=== PATIENT | female | born 1950 | race Caucasian/White ===

== ENCOUNTER 2020-07-14 15:30 | Inpatient (IN) ==
--- NOTE | 2020-07-14 16:07 | ERNOTE ---
Neuro HPI ER Record Date of Service: 07/14/20 Presenting Symptoms: weakness, numbness, impaired speech, difficulty walking Time Seen by Provider: 07/14/20 15:59 Source: patient, family Exam Limitations: no limitations Immunizations: IMMUNIZATION HX Immunizations Up to Date Yes Allergies/Adverse Reactions: Allergies Allergy/AdvReac Type Severity Reaction Status Date / Time Penicillins Allergy Unknown Verified 07/14/20 16:22 Home Medications: HOME MEDICATIONS Aspirin [Aspirin EC] 325 mg PO DAILY 07/14/20 [Last Taken Unknown] Esomeprazole Magnesium [Nexium] 20 mg PO DAILY 07/14/20 [Last Taken Unknown] - History of Present Illness Narrative: 69 yr old left hand dominant female with history of CVA three years ago resulting in weakness of the left hand hand and leg. She had improved and was able to walk independently. On Wednesday morning she noticed increased weakness to her left leg causing it to drag. Also reported weakness in her left hand. Reports decreased sensation in the left leg. The daughter saw her today and noted that she was walking with her walker again and brought her to the ER. Also reports vomiting the past few nights. States she had difficulty swallowing. Denies any nausea. Reports dull right sided headache in the pos terior region. Denies any dizziness. Daughter feels the patient's speech is slightly slurred and slower. She does not have a primary care provider. She moved here from [place] two years ago and has not had any health care here. Date (Duration): 07/14/20 Time (Timing): 15:59 Last Date Known Well: 07/11/20 Last Time Known Well: 12:00 Onset: gradual onset Severity: moderate Context: other - None - Character of Deficits New weakness: Present: LUE, LLE Altered sensation: Present: LLE Additional Deficits: Present: impaired speech - not as fluent, difficulty swallowing, decrease ability to stand, decrease ability to walk, off balance - unsteady Baseline Cognition: Present: alert, oriented x 4 Baseline Gait: Present: uses a cane/walker Associated Symptoms: Reports: headache Prior Treament: Reports: similar symptoms before Review of Systems - Review of Systems Constitutional: Present: weakness EYE: Present: no symptoms reported ENT: Present: no symptoms reported Respiratory: Absent: shortness of breath Cardiology: Absent: chest pain, palpitations Gastrointestinal/Abdominal: Absent: nausea, vomiting Genitourinary: Present: no symptoms reported Musculoskeletal: Present: no symptoms reported Skin: Present: no symptoms reported Neurological: Present: headache, weakness, numbness Endocrine: Present: no symptoms reported Hematologic/Lymphatic: Present: no symptoms reported Psych: Present: no symptoms reported All Other Systems: All systems neg except as marked Medical History (Last Reviewed 07/14/20 @ 16:09 by CRISTO Barrios) History of CVA with residual deficit L leg weakness Surgical History: Surgical History (Last Updated 07/14/20 @ 16:20 by Ale De Oliveira RN) History of tonsillectomy and adenoidectomy Family History: Family History (Last Updated 07/14/20 @ 16:41 by Ale De Oliveira RN) Mother Hypertension CHF (congestive heart failure) COPD (chronic obstructive pulmonary disease) Father Myocardial infarction Social History: (Last Updated 07/14/20 @ 16:22 by Ale De Oliveira RN) Tobacco: Smoking Status: Former smoker Alcohol: alcohol intake: current Alcohol type: beer alcohol intake frequency: 0-2 drinks per day Substance Use: substance use type: does not use Physical Exam - Physical Exam General Appearance: Present: wd/wn, alert, no apparent distress Head Exam: Present: normal inspection, no evidence of injury Eye Exam: Normal inspection: bilateral, PERRL: bilateral, EOMI: bilateral Ears, Nose, Throat: Present: normal ENT inspection, normal pharynx Neck: Present: normal inspection Respiratory: Present: no respiratory distress, normal breath sounds, no accessory muscle use, chest nontender, lungs clear Cardiovascular/Chest: Present: regular rate, rhythm, no murmur, normal peripheral pulses Gastrointestinal/Abdominal: Present: normal bowel sounds, nontender, nondistended, soft Back Exam: Present: normal inspection, normal range of motion Extremity Exam: Present: non-tender, normal range of motion, no edema, other - Left sided weakness Left hand broadcast director operations 4/5, right hand broadcast director operations 5/5, Left quadricep 3/5, right quadricep 5/5 Difficulty in coordination in walking, drags left leg Neurological Exam: Present: alert, oriented, normal mood/affect, air traffic controller center II-XII nml as tested, motor weakness - Left hand and left leg, other - Decreased sensation in left leg, No drift. Mild ataxia left leg Gait is very unsteady. Absent: facial droop, disoriented to person, disoriented to time, disoriented to place, disoriented to situation Skin Exam: Present: normal color, warm/dry Kye Coma Scale - Assess Eye Opening: Spontaneous Motor: Obeys Commands Verbal: Oriented - Total Coma Scale Total: 15 Initial Stroke Assessment - Date/Time of assessment Stroke Scale Date: 07/14/20 Stroke Scale Time: 16:00 - NIH Stroke Scale Level of Consciousness: Alert LOC Questions (Year and Age): Answers both correctly LOC Commands (open/close eyes/fist): Performs both correctly Lateral Gaze Paresis: None Visual Field Loss: No visual loss Facial Palsy: Normal movement Right Arm Motor (10 sec hold): No drift Left Arm Motor (10 sec hold): No drift Right Leg Motor (5 sec hold): No drift Left Leg Motor (5 sec hold): No drift Limb Ataxia (finger/nose heel/callejas): Present in 1 limb Sensory Loss (pinprick arms/legs/face): Mild, aware yet dulled Language Aphasia (description/naming/reading): No aphasia; normal Dysarthria (speech clarity): Normal articulation Neglect Inattention (visual/tactile/auditory/spatial/person): No neglect Initial Stroke Scale Score:: 2 Stroke Inclusion/Exclusion Cri - Inclusion Questions: Yes Onset of symptoms <3 1/2 hours of admission to ETC: No Secondary Stroke Assessment - Date/Time of assessment Stroke Scale Time: 17:26 - NIH Stroke Scale Level of Consciousness: Alert LOC Questions (Year and Age): Answers both correctly LOC Commands (open/close eyes/fist): Performs both correctly Lateral Gaze Paresis: None Visual Field Loss: No visual loss Facial Palsy: Normal movement Right Arm Motor (10 sec hold): No drift Left Arm Motor (10 sec hold): No drift Right Leg Motor (5 sec hold): No drift Left Leg Motor (5 sec hold): No drift Limb Ataxia (finger/nose heel/callejas): Present in 1 limb If present, ataxia in:: Left leg Sensory Loss (pinprick arms/legs/face): Mild, aware yet dulled Language Aphasia (description/naming/reading): No aphasia; normal Dysarthria (speech clarity): Normal articulation Neglect Inattention (visual/tactile/auditory/spatial/person): No neglect Secondary Stroke Scale Total:: 2 - Results of Tests Evidence of acute intracranial bleed: No Evidence of acute ischemic stroke: Yes CT result is negative: Yes Platelets >100,000/ Hemogram normal: Yes PT<15 or INR <1.7: Yes PTT normal: Yes Progress - Results and Orders Patient's Lab Results:: I have reviewed the patient's lab results. Results and Orders: Laboratory Tests 07/14/20 16:17 WBC 8.1 RBC 4.63 Hgb 14.0 Hct 42.5 Plt Count 181 Laboratory Tests 07/14/20 16:17 PT 11.2 H INR (Anticoag Therapy) 1.08 PTT ([place]) 24.7 Laboratory Tests 07/14/20 07/14/20 16:17 16:17 ESR 24 H Sodium 140 Potassium 3.5 Chloride 104 Carbon Dioxide 25.8 Anion Gap 13.7 BUN 12 Creatinine 1.13 Est GFR (Non-Af Amer) 51 L BUN/Creatinine Ratio 10.6 Random Glucose 98 Calcium 9.1 Total Bilirubin 0.5 AST 79 H ALT 86 H Alkaline Phosphatase 79 Total Protein 7.4 Albumin 3.5 - Vital Signs Patient's Vital Signs:: I have reviewed the patient's vital signs. Vital Signs: Vital Signs 07/14/20 15:35 Temperature 36.9 C Pulse Rate 80 Respiratory Rate 18 Blood Pressure 92/39 O2 Sat by Pulse Oximetry 95 - EKG EKG #1 EKG: other - Sinus bradycardia rate 58, no acute changes - X-Ray X-Ray #1 X-Ray: chest Interpretation: Discd w/ radiologist - No acute pathology - CT/Ultrasound CT/Ultrasound Narrative: CT Head: Findings: Exam shows symmetric prominence of the ventricular system compatible with moderate atrophy. There is moderate to severe white matter low densities compatible with white matter microvascular ischemic disease. There are no focal abnormal hypodensities to suggest vascular territory infarct. Follow-up with head MRI as clinically indicated. There is no positive mass effect or midline shift. There is no evidence for intracranial hemorrhage. Visualized paranasal sinuses and mastoid air cells appear adequately aerated. IMPRESSION: MODERATE ATROPHY WITH MODERATE TO SEVERE WHITE MATTER MICROVASCULAR ISCHEMIC DISEASE. NO ACUTE INTRACRANIAL PATHOLOGY OTHERWISE IDENTIFIED. FOLLOW- UP CLINICALLY INDICATED. Electronically signed by Nikita Patrick M.D.. - Progress/Reassessment Chief Complaint: CerebroVascular Accident Progress Note-Subjective: 07/14/20 16:26 Blood sugar on arrival at bedside was 91 07/14/20 17:57 Test results, etiology and treatment plan discussed with daughter and patient. Symptoms persist. Patient needs admission for further work up of echocardiogram, carotid ultrasound and MRI. She does not meet criteria for TPA. She has failed Aspirin therapy, so most likely will need different anticoagulation. Will need acute rehabilitation as well. We attempted to ambulate patient a short distance to a wheelchair. She required assistance and was very unstable. Patient would be a fall risk to go home. I have a call out to Dr. Mann for admission. 07/14/20 18:[address] Mann. He graciously agreed to accept her for admission. Patient needs acute rehabilitation to have the best chance to regain her mobility, independence and prevent further complications. Her blood pressure needs to be monitored. She needs medication adjustments for her hypertension and her anti - platelet therapy. Will also need echocardiogram, carotid ultrasound and MRI of the head. 07/14/20 18:55 Plan - Plan Plan: Admit to acute floor Departure Clinical Impression: CVA (cerebral vascular accident) Qualifiers: CVA mechanism: unspecified Qualified Code(s): I63.9 - Cerebral infarction, unspecified Hypertension Qualifiers: Hypertension type: unspecified Qualified Code(s): I10 - Essential (primary) hypertension - Departure Disposition: Still a patient Condition: Stable
[2020-07-14] MEDS ORDERED: LABETALOL HCL 5 MG/ML VIAL IV ONE ×2 (16:19→16:49)
[2020-07-14 16:34] LABS: Hematocrit 42.5 % (37.0-47.0); Mean Cell Volume 91.8 fl (78-100); Mean Corpuscular Hemoglobin 30.2 pg (27-31); Mean Corpuscular Hgb Conc 32.9 g/dl (32-36); Neutrophil # 3.5 K/mm3 (1.3-6.0); Neutrophil % 42.9 % (42-75.0); Platelet Count 181 K/mm3 (150-450); Red Blood Count 4.63 M/mm3 (4.2-5.4); Red Cell Distribution Width 12.8 % (11.5-14.0); White Blood Count 8.1 K/mm3 (4.0-10.5)
[2020-07-14 16:47] LABS: Prothrombin Time (Patient) 11.2 Seconds (9.1-10.7)
[2020-07-14 16:50] LABS: INR 1.08 INR (0.92-1.08); Partial Thrombolplastin Time 24.7 Seconds (24-32)
[2020-07-14 17:02] LABS: Albumin * 3.5 gm/dl (3.4-5.0); Anion Gap 13.7 mmol/L (6.8-13.8); BUN/Creatinine Ratio 10.6 (9.0-21.6); Bilirubin, Total 0.5 mg/dL (0.0-1.1); Ca. Corrected For Albumin 9.2 mg/dL (8.4-10.2); Calcium * 9.1 mg/dL (7.9-10.9); Carbon Dioxide 25.8 mmol/L (24-32.6); Potassium 3.5 mmol/L (3.4-4.6); Total Protein 7.4 gm/dL (6.2-8.2)
--- NOTE | 2020-07-14 21:11 | HP ---
Chief Complaint - Chief Complaint Date of Service: 07/14/20 Time of Service: 21:11 Chief Complaint: Left leg weakness, difficulty with some speech, cognitively slow History of Present Illness: 69-year-old female with history of previous CVA roughly 2 and half years ago and GERD presented to the hospital after 3 days of progressively worsening left lower extremity weakness with some slurred speech and difficulty finding the appropriate words. Patient states that her left lower extremity weakness has fluctuated over the last couple of weeks but significantly declined since that surgery. She is unsure as why she did not come in earlier. She is well inside the window of any kind of intervention. Patient does take a full-strength aspirin but is not on a statin. Patient with previous CVA that resulted in left-sided deficit but states that they had improved some to where she could function other than drive but now she is really struggling with ambulation, speech, balance, and cognition. Head CT showed moderate atrophy with moderate to severe white matter microvascular ischemic disease. No acute intracranial pathology otherwise identified. Patient states previous work-ups for her other CVA was nonconclusive. She does not have those records with her at this time. Patient has not seen a physician close to 2 years since moving to the area from [place]. Currently she denies headache, vision changes. She endorses left lower extremity weakness. Denies sensory changes. Some nystagmus horizontally on eye exam. She does appear to be having issues with finding the right words to use and according to her family was in the room she is much slower with her speech with some slurring. Facial symmetry within normal limits. Cranial nerves II through XII intact. Patient admitted under observation, will need PT/OT/ST for evaluation. Likely will need outpatient work-up Lab work in the ER was fairly unremarkable. Medical History (Last Reviewed 07/14/20 @ 19:53 by Aleshia Shane RN) Endometriosis H/O angiography cerebral and reports was normal History of CVA with residual deficit L leg weakness Hypertension Osteopenia Surgical History: Surgical History (Last Reviewed 07/14/20 @ 19:53 by Aleshia Shane RN) History of tonsillectomy and adenoidectomy Family History: Family History (Last Reviewed 07/14/20 @ 19:53 by Aleshia Shane RN) Mother Hypertension CHF (congestive heart failure) COPD (chronic obstructive pulmonary disease) Father Myocardial infarction Social History: (Last Reviewed 07/14/20 @ 19:53 by Aleshia Shane RN) Tobacco: Smoking Status: Former smoker Alcohol: alcohol intake: current Alcohol type: beer alcohol intake frequency: 0-2 drinks per day Substance Use: substance use type: does not use Review Of Systems (GEN) - Review of Systems Generalized/Overall Review: Present: Weakness. Absent: Chills, Fever EENTM: Present: No Symptoms Reported Respiratory: Present: No Symptoms Reported Cardiac: Present: No Symptoms Reported Abdominal: Present: No Symptoms Reported Genitourinary: Present: No Symptoms Reported Musculoskeletal: Present: No Symptoms Reported Neurological: Present: Weakness, Pre-existing Deficit, Other - slurred speech. Absent: Numbness Immunizations: IMMUNIZATION HX Immunizations Up to Date Yes Allergies/Adverse Reactions: Allergies Allergy/AdvReac Type Severity Reaction Status Date / Time Penicillins Allergy Unknown Verified 07/14/20 16:22 Home Medications: HOME MEDICATIONS Aspirin [Aspirin EC] 325 mg PO DAILY 07/14/20 [Last Taken Unknown] Esomeprazole Magnesium [Nexium] 20 mg PO DAILY 07/14/20 [Last Taken Unknown] Exam - Exam Vital Signs: Vital Signs - Last Taken Temp 36.2 C 07/14/20 19:40 Pulse 68 07/14/20 19:40 Resp 16 07/14/20 19:40 BP 162/92 H 07/14/20 19:40 Pulse Ox 94 07/14/20 19:40 Constitutional: Present: Alert, Oriented x3, Cooperative, Elderly ENT Exam: Present: hearing grossly normal Eye Exam: bilateral eye: normal inspection, PERRL, EOMI Neck: Present: non-tender, supple, normal inspection Respiratory: Present: lungs clear, normal breath sounds Cardiovascular/Chest: Present: regular rate, rhythm, no murmur Peripheral Pulses: dorsalis-pedis (R): 2+, dorsalis-pedis (L): 2+ Abdomen: Present: soft, nontender, nondistended Skin Exam: Present: normal color, warm/dry Neurologic: Present: roll up machine operator II-XII nml as tested, motor weakness - LLE 4/5, left heel boom operator strength 4+/5 RLE and RUE WNL, other - some dysphagia and dysarthria. Absent: sensory deficit Appearance: Present: appropriate appearance, appropriate insight Eye contact: Present: cooperative, good eye contact Thoughts: Present: normal thought pattern, normal mood /affect Diagnostic Studies: Abnormal Lab Results 07/14/20 07/14/20 07/14/20 Range/Units 16:17 16:17 16:17 Monocytes % 9.7 H (0.0-9) % Basophils % 1.1 H (0.0-1.0) % Lymphocytes # 3.51 H (1.5-3.5) k/mm3 ESR 24 H (0-15) mm/hr PT 11.2 H (9.1-10.7) Seconds Est GFR (Non-Af Amer) (60-130) mL/min AST (0-48) U/L ALT (19-67) U/L 07/14/20 Range/Units 16:17 Monocytes % (0.0-9) % Basophils % (0.0-1.0) % Lymphocytes # (1.5-3.5) k/mm3 ESR (0-15) mm/hr PT (9.1-10.7) Seconds Est GFR (Non-Af Amer) 51 L (60-130) mL/min AST 79 H (0-48) U/L ALT 86 H (19-67) U/L Laboratory Results WBC 8.1 K/mm3 (4.0-10.5) 07/14/20 16:17 RBC 4.63 M/mm3 (4.2-5.4) 07/14/20 16:17 Hgb 14.0 gm/dL (12.5-16.0) 07/14/20 16:17 Hct 42.5 % (37.0-47.0) 07/14/20 16:17 MCV 91.8 fl (78-100) 07/14/20 16:17 MCH 30.2 pg (27-31) 07/14/20 16:17 MCHC 32.9 g/dl (32-36) 07/14/20 16:17 RDW 12.8 % (11.5-14.0) 07/14/20 16:17 Plt Count 181 K/mm3 (150-450) 07/14/20 16:17 MPV 11.0 fl (8-12.5) 07/14/20 16:17 Immature Gran % (Auto) 0.10 % (0.001-0.429) 07/14/20 16:17 Immature Gran # (Auto) 0.01 K/mm3 (0.000-0.0310) 07/14/20 16:17 Neutrophils % 42.9 % (42-75.0) 07/14/20 16:17 Lymphocytes % 43.6 % (20-51) 07/14/20 16:17 Monocytes % 9.7 % (0.0-9) H 07/14/20 16:17 Eosinophils % 2.6 % (0.0-3.0) 07/14/20 16:17 Basophils % 1.1 % (0.0-1.0) H 07/14/20 16:17 Nucleated RBC % 0.0 k/mm3 (0-1) 07/14/20 16:17 Neutrophils # 3.5 K/mm3 (1.3-6.0) 07/14/20 16:17 Lymphocytes # 3.51 k/mm3 (1.5-3.5) H 07/14/20 16:17 Monocytes # 0.8 k/mm3 (0.0-1.0) 07/14/20 16:17 Eosinophils # 0.2 k/mm3 (0.0-0.7) 07/14/20 16:17 Absolute Basophils 0.1 k/mm3 (0.0-0.1) 07/14/20 16:17 ESR 24 mm/hr (0-15) H 07/14/20 16:17 PT 11.2 Seconds (9.1-10.7) H 07/14/20 16:17 INR (Anticoag Therapy) 1.08 INR (0.92-1.08) 07/14/20 16:17 PTT ([place]) 24.7 Seconds (24-32) 07/14/20 16:17 Sodium 140 mmol/L (132-142) 07/14/20 16:17 Plasma Sodium 140 mmol/L (130-142) 07/14/20 16:17 Potassium 3.5 mmol/L (3.4-4.6) 07/14/20 16:17 Chloride 104 mmol/L (97-106) 07/14/20 16:17 Carbon Dioxide 25.8 mmol/L (24-32.6) 07/14/20 16:17 Anion Gap 13.7 mmol/L (6.8-13.8) 07/14/20 16:17 BUN 12 mg/dL (3-23) 07/14/20 16:17 Creatinine 1.13 mg/dL (0.4-1.4) 07/14/20 16:17 Est GFR (Non-Af Amer) 51 mL/min (60-130) L 07/14/20 16:17 BUN/Creatinine Ratio 10.6 (9.0-21.6) 07/14/20 16:17 Random Glucose 98 mg/dL (70-110) 07/14/20 16:17 Calcium 9.1 mg/dL (7.9-10.9) 07/14/20 16:17 Calcium Adj for Albumin 9.2 mg/dL (8.4-10.2) 07/14/20 16:17 Total Bilirubin 0.5 mg/dL (0.0-1.1) 07/14/20 16:17 AST 79 U/L (0-48) H 07/14/20 16:17 ALT 86 U/L (19-67) H 07/14/20 16:17 Alkaline Phosphatase 79 U/L (50-170) 07/14/20 16:17 Total Protein 7.4 gm/dL (6.2-8.2) 07/14/20 16:17 Albumin 3.5 gm/dl (3.4-5.0) 07/14/20 16:17 SARS-CoV-2 (PCR) Not detected (NotDetected) 07/14/20 17:48 Assessment/Plan - Narrative Narrative: Patient admitted under inpatient for CVA. Patient currently will outside the window for any invasive procedures for treatment. Patient has history of CVA affecting left side roughly 2 and half years ago which mostly resolved but she still did have some left lower extremity deficit prior to this recurrence. Patient has had work-ups in the past which he states were negative, "most doctors think I am weird, hard to diagnose ". Unable to get some of her records as they were lost she does have records and [place] that we could obtain. Family has in the opening then. Patient is not on a statin medicine, states she had difficulty getting it due to insurance purposes. Patient's blood pressure fairly well controlled at this time and will treat to bring back into normal range as she is 3 days after onset of this issue. Patient likely with repeat CVA affecting her left side, her speech, and her mildly slowed cognition (per family considered). Will order PT, speech therapy, and occupational therapy for evaluation. Pending the recommendations she may be able to get MRI and carotid studies while here in the hospital. Due to patient's deficit though she likely will need to go to skilled inpatient nursing facility which I think would be appropriate for her. We will start her on statin medicine. Continue aspirin full-strength. Restarted her omeprazole which she takes for GERD. Will monitor blood pressure. Bedside swallow ordered with nurses to evaluate whether she can tolerate any p.o. intake. If he passes instrumented liquids until she gets formal recommendations from speech therapy. Overall the patient feels well, denies headache. She is pleasant to talk to. We will work her up for stroke in the morning, follow-up with her after her therapy evaluations, and likely start referral placements. If she does meet requirements for inpatient therapy then will order MRI and carotid studies. Nurse will call questions or concerns. - Assessment/Plan (1) CVA (cerebral vascular accident) Problem: Acute Qualifiers: CVA mechanism: unspecified Qualified Code(s): I63.9 - Cerebral infarction, unspecified (2) Hypertension Problem: Acute Qualifiers: Hypertension type: unspecified Qualified Code(s): I10 - Essential (primary) hypertension
[2020-07-14] MEDS: ROSUVASTATIN CALCIUM 10 MG TABLET PO SCH (21:54)
[2020-07-14] MEDS: ENOXAPARIN SODIUM 40 MG/0.4 ML SYRG SC SCH (21:54)
[2020-07-15] MEDS: PANTOPRAZOLE SODIUM 20 MG TABLET.DR PO SCH (08:35)
[2020-07-15] MEDS: ASPIRIN 325 MG TABLET.DR PO SCH (08:35)
[2020-07-15] MEDS: LISINOPRIL 10 MG TABLET PO SCH (11:46)
--- NOTE | 2020-07-15 12:07 | PN ---
Subjective - Date and Time Seen Date: 07/15/20 Time: 12:07 Subjective Narrative: Patient currently undergoing carrotid study. MRI obtained: LATE ACUTE EARLY SUBACUTE ISCHEMIC INFARCT IN THE RIGHT SIDE OF THE MID TO LOWER CONCHIS. NO HEMORRHAGE. NO MASS EFFECT OR MIDLINE SHIFT. CONSIDERABLE BILATERAL WHITE MATTER SIGNAL ABNORMALITIES AND CEREBRAL VOLUME LOSS INDICATING CHRONIC MICROVASCULAR ISCHEMIA. Carrotids unremarkable. She feels well, still has same neurological symptoms. Objective - Review of Systems Generalized/Overall Review: Reports: Weakness. Denies: Chills, Fever EENTM: Reports: No Symptoms Reported Respiratory: Reports: No Symptoms Reported Cardiac: Reports: No Symptoms Reported Abdominal: Reports: No Symptoms Reported Neurological: Reports: Weakness, Pre-existing Deficit. Denies: Numbness - Vitals Vitals: Last Vital Signs Temp 38.0 C 07/15/20 11:36 Pulse 83 07/15/20 11:46 Resp 16 07/15/20 11:36 BP 163/73 H 07/15/20 11:46 Pulse Ox 94 07/15/20 11:36 - Abnormal Lab Findings Abnormal Lab Findings: Abnormal Lab Results 07/14/20 07/14/20 07/14/20 Range/Units 16:17 16:17 16:17 Monocytes % 9.7 H (0.0-9) % Basophils % 1.1 H (0.0-1.0) % Lymphocytes # 3.51 H (1.5-3.5) k/mm3 ESR 24 H (0-15) mm/hr PT 11.2 H (9.1-10.7) Seconds Est GFR (Non-Af Amer) (60-130) mL/min AST (0-48) U/L ALT (19-67) U/L 07/14/20 Range/Units 16:17 Monocytes % (0.0-9) % Basophils % (0.0-1.0) % Lymphocytes # (1.5-3.5) k/mm3 ESR (0-15) mm/hr PT (9.1-10.7) Seconds Est GFR (Non-Af Amer) 51 L (60-130) mL/min AST 79 H (0-48) U/L ALT 86 H (19-67) U/L - Exam Constitutional: Present: Alert, Oriented x3, Cooperative, Well developed Respiratory: Present: lungs clear, normal breath sounds Cardiovascular/Chest: Present: regular rate, rhythm, no murmur Abdomen: Present: soft, nontender, nondistended Skin Exam: Present: normal color, warm/dry Neurologic: Present: motor weakness - LLE hip flexion , decreased aviation manager strength on left compared to right Appearance: Present: appropriate appearance, appropriate insight Eye contact: Present: cooperative, good eye contact Assessment/Plan Plan Narrative: Patient will be discharged to inpatient rehab facility once bed becomes available. MRI consistent with stroke causing deficits. SHe is on ASA and statin med. Vital signs show her BP mildly elevated, started on lisinopril. Continue with PT, OT. ST. Continue with current tx plan. Nurse to call with questions or concerns. - Problems/Diagnosis (1) CVA (cerebral vascular accident) Problem: Acute Qualifiers: CVA mechanism: unspecified Qualified Code(s): I63.9 - Cerebral infarction, unspecified (2) Hypertension Problem: Acute Qualifiers: Hypertension type: unspecified Qualified Code(s): I10 - Essential (primary) hypertension
[2020-07-15] MEDS: ROSUVASTATIN CALCIUM 10 MG TABLET PO SCH (20:02)
[2020-07-15] MEDS: ENOXAPARIN SODIUM 40 MG/0.4 ML SYRG SC SCH (20:03)
[2020-07-16] MEDS: PANTOPRAZOLE SODIUM 20 MG TABLET.DR PO SCH (07:20)
[2020-07-16] MEDS: ASPIRIN 325 MG TABLET.DR PO SCH (08:43)
[2020-07-16] MEDS: LISINOPRIL 10 MG TABLET PO SCH (08:43)
--- NOTE | 2020-07-16 17:54 | PN ---
Subjective - Date and Time Seen Date: 07/16/20 Time: 12:42 Subjective Narrative: She has had significant progression in her stroke now with significant weakness in her upper extremity that was not present when she first came in. She also has much more worse dysarthria and dysphagia than previously. MRI did show stroke, carotid Doppler was negative. Echocardiogram pending. Patient is been accepted to inpatient rehab in [place] which I think will be very beneficial for her. She was started on lisinopril yesterday as she was at day 5 of the onset of her stroke so she is well outside the 48-hour window but this will be held now due to progression of her stroke. She is very frustrated and upset obviously and wishes she had come in on when her stroke symptoms began but will optimize her medications and get her into the right rehab facility to optimize her ability to progress and recover some of her neurologic deficits. Objective - Review of Systems Generalized/Overall Review: Reports: Weakness. Denies: Chills, Fever EENTM: Denies: Blurred Vision Respiratory: Reports: No Symptoms Reported Cardiac: Reports: No Symptoms Reported Abdominal: Reports: No Symptoms Reported Neurological: Reports: Numbness, Weakness, Other - Slurred speech - Vitals Vitals: Last Vital Signs Temp 36.3 C 07/16/20 14:36 Pulse 68 07/16/20 14:36 Resp 16 07/16/20 14:36 BP 116/68 07/16/20 14:36 Pulse Ox 92 L 07/16/20 14:36 - Exam Constitutional: Present: Alert, Oriented x3, Moderate distress ENT Exam: Present: hearing grossly normal Neck: Present: non-tender, supple Respiratory: Present: lungs clear, normal breath sounds Cardiovascular/Chest: Present: regular rate, rhythm, no murmur Abdomen: Present: soft, nontender, nondistended Skin Exam: Present: normal color, warm/dry Neurologic: Present: facial droop, motor weakness, depressed affect, other - Dysphagia and dysarthria Eye contact: Present: cooperative, good eye contact Thoughts: Present: normal thought pattern, normal mood /affect Assessment/Plan Plan Narrative: Patient with progressing stroke. Both CT and MRI yesterday did not show any bleed. She is on a statin medicine, Lovenox, aspirin. Echocardiogram pending. Patient's placement for inpatient rehab is also pending, likely will be available tomorrow morning. She continues with PT, OT, and speech therapy. Those records will be provided to inpatient rehab at her transfer. Stopped lisinopril, again she is outside the 48-hour window but will allow for permissive hypertension. SCDs to be worn while in bed. Nurse to call questions or concerns. [facility] morning. - Problems/Diagnosis (1) CVA (cerebral vascular accident) Problem: Acute Qualifiers: CVA mechanism: unspecified Qualified Code(s): I63.9 - Cerebral infarction, unspecified (2) Hypertension Problem: Acute Qualifiers: Hypertension type: unspecified Qualified Code(s): I10 - Essential (primary) hypertension
[2020-07-16] MEDS: ROSUVASTATIN CALCIUM 10 MG TABLET PO SCH (21:29)
[2020-07-16] MEDS: ENOXAPARIN SODIUM 40 MG/0.4 ML SYRG SC SCH (21:29)
[2020-07-17] MEDS: PANTOPRAZOLE SODIUM 20 MG TABLET.DR PO SCH (06:42)
[2020-07-17] MEDS: ASPIRIN 325 MG TABLET.DR PO SCH (09:02)
--- NOTE | 2020-07-17 09:41 | DS ---
(1) CVA (cerebral vascular accident) Problem: Acute Qualifiers: CVA mechanism: unspecified Qualified Code(s): I63.9 - Cerebral infarction, unspecified (2) Hypertension Problem: Acute Qualifiers: Hypertension type: unspecified Qualified Code(s): I10 - Essential (primary) hypertension Date of Discharge:: 07/17/20 Hospital Course: 69-year-old female admitted to the hospital Wednesday night for presumed recurrent left sided CVA. Patient with history of previous CVA only on aspirin at time of admission. Patient symptoms were fairly consistent with previous CVA, patient had pre-existing deficits including left lower extremity weakness but otherwise was independent with ADLs aside from driving. Upon admission patient had worsening (subjective) left-sided weakness compared to right but was still fairly strong on exam without sensory deficits. She also had decreased left pawn broker strength compared to the right but again was negligible. At the time of admission patient had no sensory changes. She had minor dysarthria upon presentation and trouble finding words according to herself and her daughter who was present. Cognitively though she appeared to be very well intact and passed the bedside swallow in order to have diet restarted. PT OT and speech therapy were started the following day. MRI and carotid Dopplers ordered on second day of admission. MRI came back showing late acute ischemic infarct in the right side of the mid to lower hector without hemorrhage or mass-effect. No midline shift. There is also considerable white matter signal abnormalities with cerebral volume loss indicating chronic microvascular ischemia. Carotids studies were unremarkable. Yesterday patient developed significantly worsening left-sided deficits in both her upper and lower extremity as well as a significant decline in her speech and both clarity and word finding ability. Patients left upper extremity became flaccid which was a significant change as well as her left lower extremity weakness declined. It was recommended that patient be admitted to inpatient therapy and was [facility]. Patient has been on Lovenox and a full- strength aspirin. Patient was started on a statin medication. These will be continued and adjusted by her therapy team as indicated. Of note patient's blood pressure initially was elevated systolically in the 160s and 170s. As her stroke started on , roughly 3 days prior to admission, permissive hypertension was allowed for additional 24 hours. She was started on a low-dose lisinopril but this was discontinued following her decline due to concern for decreased cerebral perfusion. Her blood pressures have been stable systolically in the 120s to 140s since and she is not currently on any blood pressure medication. Echocardiogram was obtained yesterday which did not show any acute cardiac pathology with sustained ventricular function and no thrombus identified. Patient would likely benefit from antidepression medication as well as yesterday was very difficult for her as expected and today she is tearful due to her progressing symptoms which is understandable. Therapy notes will be transferred with her to her new facility. Patient does have a history of previous CVA, hypertension, and acid reflux. She was only on aspirin and a good medication upon admission. Patient can follow-up with me after discharge from her therapy facility to continue managing her chronic medical conditions. Procedures Performed: none Results and Findings: Lab Pending Results 07/14/20 16:17: WBC 8.1, RBC 4.63, Hgb 14.0, Hct 42.5, MCV 91.8, MCH 30.2, MCHC 32.9, RDW 12.8, Plt Count 181, MPV 11.0, Immature Gran % (Auto) 0.10, Immature Gran # (Auto) 0.01, Neutrophils % 42.9, Lymphocytes % 43.6, Monocytes % 9.7 H, Eosinophils % 2.6, Basophils % 1.1 H, Nucleated RBC % 0.0, Neutrophils # 3.5, Lymphocytes # 3.51 H, Monocytes # 0.8, Eosinophils # 0.2, Absolute Basophils 0.1 07/14/20 16:17: ESR 24 H 07/14/20 16:17: PT 11.2 H, INR (Anticoag Therapy) 1.08, PTT (Smyth) 24.7 07/14/20 16:17: Sodium 140, Plasma Sodium 140, Potassium 3.5, Chloride 104, Carbon Dioxide 25.8, Anion Gap 13.7, BUN 12, Creatinine 1.13, Est GFR (Non-Af Amer) 51 L, BUN/Creatinine Ratio 10.6, Random Glucose 98, Calcium 9.1, Calcium Adj for Albumin 9.2, Total Bilirubin 0.5, AST 79 H, ALT 86 H, Alkaline Phosphatase 79, Total Protein 7.4, Albumin 3.5 07/14/20 17:48: SARS-CoV-2 (PCR) Not detected Discharge Location: [facility] Disposition: Inpatient Rehab Facility Condition: Stable Discharge Activity: Activity as tolerated Discharge Diet: Low fat/chol Long Term Therapy: Physical Therapy, Occupation Therapy, Speech Therapy Problem Oriented Discharge Instructions to Patient/Family: Stroke Prevention, [id number], Warning Signs of a Stroke, Rehabilitation After a Stroke, Adult Additional Patient Instructions (free text): [facility] Inpatient Rehab- PT, OT, and speech therapy. Complete Home Medications List: Complete Home Medication List: Aspirin [Aspirin EC] 325 mg PO DAILY 07/14/20 Esomeprazole Magnesium [Nexium] 20 mg PO DAILY 07/14/20 Enoxaparin Sodium [Lovenox] 40 mg SC Q24H disp.syrin 07/17/20 Rosuvastatin Calcium [Crestor] 10 mg PO Q24H tab 07/17/20 Forms: Patient Portal Registration
[2020-07-17 13:18] VITALS: BP 135/69
== END 2020-07-17 13:00 | disposition short-term general hospital (02) | DRG 65 ==
LOC: ER 15:30 → MS 18:59
PROVIDERS: ADMIT Family Medicine; ATTEND Family Medicine